=== PATIENT | female | born 1950 | race Two or more races ===

== ENCOUNTER 2017-12-30 22:41 | Emergency (ER) | payer OTHER ==
[~2017-12-30] VITALS: Ht 152.4 cm; Wt 42.6 kg
[~2017-12-30 22:41] MED LIST: ATEN50TA PO; BENA40TA2 PO; BP PILL; IBUP-1953 PO
[2017-12-30] MEDS ORDERED: ASPI81TA31 PO (23:08)
--- NOTE | 2017-12-30 23:10 | NUR ---
DR MARCIE PEREZ MD AT BEDSIDE FOR MSE.
[2017-12-30] MEDS ORDERED: HYDROCODONE/APAP 5-325MG TABLET PO ONE (23:15)
[2017-12-30] MEDS ORDERED: HYDROCODONE/APAP 5-325MG TABLET ONE (23:19)
--- NOTE | 2017-12-30 23:48 | NUR ---
RADIOLOGY AT PT BEDSIDE FOR XRAY.
--- NOTE | 2017-12-31 00:19 | NUR ---
Patient discharged to home in stable conditon. Written and verbal after care instructions given. Patient verbalizes understanding of instructions. Pt accompanied by daughter from ER. Sling training complete. No distress noted. Denies pain.
[2017-12-31 00:24] VITALS: BP 122/92
== END 2017-12-31 00:25 | disposition home or self-care (01) ==
LOC: ER 22:42
DX: M25.511 Pain in right shoulder (principal); M19.90 Unspecified osteoarthritis, unspecified site; I10 Essential (primary) hypertension; Z79.82 Long term (current) use of aspirin
CPT/HCPCS: 73030; A4663

== ENCOUNTER 2020-05-22 23:39 | Emergency (ER) | payer OTHER ==
[~2020-05-22] VITALS: Ht 149.9 cm; Wt 48.6 kg
[~2020-05-22 23:39] MED LIST changes: +ASPI81TA31 PO; -BENA40TA2 PO; +BENA40TA8 PO; -BP PILL
[2020-05-23] MEDS ORDERED: ONDANSETRON ODT 4 MG TAB.RAPDIS ONE (00:27)
[2020-05-23] MEDS ORDERED: HYDROCODONE/APAP 5-325MG TABLET ONE (00:27)
[2020-05-23] MEDS ORDERED: KETOROLAC TROMETHAMINE 15 MG INJ ONE (00:27)
[2020-05-23] MEDS ORDERED: CYCLOBENZAPRINE HCL 10 MG TABLET ONE (00:27)
[2020-05-23] MEDS ORDERED: ONDANSETRON ODT 4 MG TAB.RAPDIS SL ONE (00:30)
[2020-05-23] MEDS ORDERED: KETOROLAC TROMETHAMINE 15 MG INJ IM ONE (00:30)
[2020-05-23] MEDS ORDERED: CYCLOBENZAPRINE HCL 10 MG TABLET PO ONE (00:30)
[2020-05-23] MEDS ORDERED: HYDROCODONE/APAP 5-325MG TABLET PO ONE (00:30)
[2020-05-23 00:36] VITALS: BP 161/98
--- NOTE | 2020-05-23 00:36 | NUR ---
Patient discharged to home in stable condition. Written and verbal after care instructions given. Patient verbalizes understanding of instructions. Stressed follow up or return to ER for worsening s/s. Patient's son driving her home.
== END 2020-05-23 00:37 | disposition home or self-care (01) ==
LOC: ER 23:42
DX: G89.29 Other chronic pain (principal); M54.5 Low back pain; I10 Essential (primary) hypertension
CPT/HCPCS: 96372; 99284; J1885; Q0162

== ENCOUNTER 2023-02-17 11:06 | Emergency (ER) | payer OTHER ==
[~2023-02-17] VITALS: Ht 149.9 cm; Wt 46.3 kg
--- NOTE | 2023-02-17 11:20 | NUR ---
Dr. Parkinson at bedside, exam in progress. Pt's daugther at bedside.
[2023-02-17 11:23] VITALS: O2SAT 99
[2023-02-17] MEDS ORDERED: ONDANSETRON 4 MG/2 ML VIAL ONE (11:40)
[2023-02-17] MEDS ORDERED: MECLIZINE HCL 25 MG TABLET ONE (11:40)
[2023-02-17] MEDS: ONDANSETRON 4 MG/2 ML VIAL IV ONE ×2 (11:41→11:50)
[2023-02-17] MEDS: IV NORMAL SALINE 100 ML BAG IV ONE ×2 (11:41→11:49)
[2023-02-17] MEDS: MECLIZINE HCL 25 MG TABLET PO ONE ×2 (11:42→11:50)
[2023-02-17 12:05] LABS: HEMATOCRIT 25.9 % (31.2-41.9); MEAN CORPUSCULAR VOLUME 88.4 fL (75.5-95.3); PLATELET COUNT (AUTO) 249 K/uL (179-408)
[2023-02-17 12:16] LABS: ALANINE AMINOTRANSFERASE 21 U/L (14-59); ALKALINE PHOSPHATASE 72 U/L (50-136); ASPARTATE AMINOTRANSFERASE 29 U/L (15-37); BILIRUBIN,TOTAL 0.4 mg/dL (0.2-1.0); CARBON DIOXIDE 27 mmol/L (21-32); CHLORIDE 95 mmol/L (98-107); CREATININE 0.8 mg/dL (0.6-1.3); POTASSIUM 3.5 mmol/L (3.5-5.1); TOTAL PROTEIN, SERUM 6.9 g/dL (6.4-8.2); UREA NITROGEN, BLOOD 13 mg/dL (7-18)
--- NOTE | 2023-02-17 12:28 | NUR ---
at bedside updating pt. of test results and discussing care plan.
[2023-02-17] MEDS ORDERED: HYDR25TA4 PO (12:29)
--- NOTE | 2023-02-17 13:57 | NUR ---
HR of 78, 99% saturation on Room air. 118/74, Pt. AAOx4. calm cooperative.
[2023-02-17] MEDS ORDERED: MECL-159 PO (14:03)
--- NOTE | 2023-02-17 14:15 | NUR ---
Patient left room Ambulatory steady gait AAOx4. dcd instructions given pt. verbalized understanding.
--- NOTE | 2023-03-03 11:55 | NUR ---
Late note entry NS started on 02/17/2023 at 1145 and finished at 1245.
== END 2023-02-17 14:16 | disposition home or self-care (01) ==
LOC: ER 11:06
DX: R42 Dizziness and giddiness (principal); D64.9 Anemia, unspecified; E86.0 Dehydration; I10 Essential (primary) hypertension; Z79.82 Long term (current) use of aspirin; Z79.1 Long term (current) use of non-steroidal anti-inflammatories (NSAID); Z79.899 Other long term (current) drug therapy
CPT/HCPCS: 99285; 96374; 70450; 71045; 96361; 80053; 83880; 85025; 84484 ×2; 36415; 93005; J2405; J7040 ×2; A4663; J8597

== ENCOUNTER 2023-03-10 20:57 | Emergency (ER) | payer OTHER ==
[~2023-03-10] VITALS: Ht 149.9 cm; Wt 61.2 kg
[~2023-03-10 20:57] MED LIST changes: -BENA40TA8 PO; +HYDR25TA4 PO; +MECL-159 PO
[2023-03-10] MEDS ORDERED: CYCLOBENZAPRINE HCL 10 MG TABLET ONE (21:28)
[2023-03-10] MEDS ORDERED: KETOROLAC TROMETHAMINE 15 MG INJ ONE (21:28)
[2023-03-10] MEDS ORDERED: LIDOCAINE 5% PATCH TD ONE ×2 (21:28→21:30)
[2023-03-10] MEDS ORDERED: CYCLOBENZAPRINE HCL 10 MG TABLET PO ONE (21:30)
[2023-03-10] MEDS ORDERED: KETOROLAC TROMETHAMINE 15 MG INJ IM ONE (21:30)
--- NOTE | 2023-03-10 21:40 | NUR ---
Patient A/Ox4, ambulated with steady gait. She is accompanied by her relative at bedside. Here for c/o chronic lower back pain. According to the family, she was given a [place] 5 just prior to arrival for her pain but the pain did not resolve immediately. Explained to the patient and family that oral medications generally take a little longer to have any effect. She denies any acute trauma, or genitourinary symptoms.
[2023-03-10] MEDS ORDERED: CYCL5TAB PO (22:30)
[2023-03-10] MEDS ORDERED: HYDR-3972 PO (22:30)
--- NOTE | 2023-03-10 22:30 | NUR ---
Patient discharged to home in stable condition. Written and verbal after care instructions given. Patient verbalizes understanding of instructions. Stressed follow up or return to ER for worsening s/s. Patient A/Ox4, able to ambulate well with steady gait. Accompanied by relative at departure.
[2023-03-10 22:38] VITALS: BP 145/88; O2SAT 98
== END 2023-03-10 22:38 | disposition home or self-care (01) ==
LOC: ER 20:59
DX: G89.29 Other chronic pain (principal); M54.50 Low back pain, unspecified; I10 Essential (primary) hypertension; Z79.82 Long term (current) use of aspirin; Z79.1 Long term (current) use of non-steroidal anti-inflammatories (NSAID); Z79.899 Other long term (current) drug therapy
CPT/HCPCS: 99283; 96372; J1885; A4663

== ENCOUNTER 2023-03-15 21:56 | Emergency (ER) | payer OTHER ==
[~2023-03-15] VITALS: Ht 149.9 cm; Wt 61.2 kg
[~2023-03-15 21:56] MED LIST changes: +CYCL5TAB PO; +HYDR-3972 PO
[2023-03-15] MEDS ORDERED: SWABABLE VALVE TRANSFER SET EA MC ONE (22:42)
[2023-03-15] MEDS ORDERED: IV NORMAL SALINE 250 ML IV ONE (22:42)
[2023-03-15] MEDS ORDERED: IOHEXOL 300MG/ML 100 ML INFUS..BTL ONE (22:42)
[2023-03-15] MEDS ORDERED: ONDANSETRON 4 MG/2 ML VIAL IV ONE (22:45)
[2023-03-15] MEDS ORDERED: CYCLOBENZAPRINE HCL 10 MG TABLET PO ONE (22:45)
[2023-03-15] MEDS ORDERED: MORPHINE SULFATE 2 MG/1 ML DISP.SYRIN IV ONE (22:45)
[2023-03-15 22:47] LABS: *BILIRUBIN,URIN NEGATIVE (NEGATIVE); *BLOOD, URINE NEGATIVE (NEGATIVE); *COLOR,URINE YELLOW (YELLOW); *KETONES,URINE TRACE (NEGATIVE); *PROTEIN,URINE NEGATIVE (NEGATIVE); *UROBILINOGEN,URINE 0.2 E.U./dl (NORMAL); LEUKOCYTE ESTERASE ,URINE 2+ (NEGATIVE); NITRITE, URINE NEGATIVE (NEGATIVE); PH,URINE 8.5 (5.0-8.0); UGLUCOSE NEGATIVE (NEGATIVE)
[2023-03-15 23:00] LABS: BASOPHILS # (AUTO) 0.1 K/UL (0.0-0.2); BASOPHILS % (AUTO) 0.6 % (0.0-2.0); EOSINOPHILS # (AUTO) 0.1 K/uL (0.0-0.7); EOSINOPHILS % (AUTO) 1.5 % (0.0-7.0); HEMATOCRIT 28.8 % (31.2-41.9); HEMOGLOBIN 9.4 g/dL (10.9-14.3); LYMPHOCYTES # (AUTO) 1.9 K/uL (0.8-4.8); LYMPHOCYTES % (AUTO) 21.3 % (20.5-51.5); MEAN CORPUSCULAR HEMOGLOBIN 28.2 uug (24.7-32.8); MEAN CORPUSCULAR HGB CONC 33 g/dL (32.3-35.6); MEAN CORPUSCULAR VOLUME 86.3 fL (75.5-95.3); MONOCYTES # (AUTO) 0.7 K/uL (0.1-1.30); MONOCYTES % (AUTO) 8.4 % (0.0-11.0); NEUTROPHILS # (AUTO) 5.9 K/uL (1.8-8.9); NEUTROPHILS % (AUTO) 68.2 % (38.5-71.5); PLATELET COUNT (AUTO) 290 K/uL (179-408); RED BLOOD CELL COUNT(AUTO) 3.33 MIL/uL (3.63-4.92); RED CELL DISTRIBUTION WIDTH 14.5 % (12.3-17.7); WHITE BLOOD COUNT (AUTO) 8.7 K/uL (3.8-11.8)
[2023-03-15 23:06] LABS: *CLARITY,URINE HAZY (CLEAR)
[2023-03-15 23:11] LABS: BACTERIA,URINE MODERATE /HPF (NONE SEEN); SQUAMOUS EPITHELIAL CELL,UR FEW /HPF (NONE SEEN); WBC,URINE 20-50 /HPF (0-3)
[2023-03-15 23:13] LABS: CALCIUM 8.9 mg/dL (8.5-10.1); CARBON DIOXIDE 25 mmol/L (21-32); CHLORIDE 99 mmol/L (98-107); CREATININE 1.1 mg/dL (0.6-1.3); GLUCOSE 136 mg/dL (74-106); POTASSIUM 3.4 mmol/L (3.5-5.1); SODIUM SERUM 138 mmol/L (136-145); UREA NITROGEN, BLOOD 13 mg/dL (7-18)
[2023-03-15] MEDS ORDERED: ONDANSETRON 4 MG/2 ML VIAL ONE (23:18)
[2023-03-15] MEDS ORDERED: CYCLOBENZAPRINE HCL 10 MG TABLET ONE (23:18)
[2023-03-15 23:19] LABS: ALANINE AMINOTRANSFERASE 25 U/L (14-59); ALBUMIN 3.7 g/dL (3.4-5.0); ALKALINE PHOSPHATASE 104 U/L (50-136); ASPARTATE AMINOTRANSFERASE 23 U/L (15-37); BILIRUBIN,DIRECT 0.1 mg/dL (0.0-0.2); BILIRUBIN,TOTAL 0.3 mg/dL (0.2-1.0); LIPASE 229 U/L (73-393); TOTAL PROTEIN, SERUM 7.6 g/dL (6.4-8.2)
[2023-03-15] MEDS ORDERED: MORPHINE SULFATE 2 MG/1 ML DISP.SYRIN ONE (23:19)
[2023-03-15] MEDS ORDERED: CEFTRIAXONE 1 G in IV DEXTROSE 5% 50 ML IV ONE (23:30)
[2023-03-15] MEDS ORDERED: CEFTRIAXONE /D5W 50ML IVPB **ER PYXIS IV ONE (23:41)
[2023-03-16] MEDS ORDERED: KETOROLAC TROMETHAMINE 15 MG INJ IVP ONE
[2023-03-16] MEDS ORDERED: KETOROLAC TROMETHAMINE 15 MG INJ ONE (00:05)
[2023-03-16] MEDS ORDERED: CEFP200T14 PO (00:11)
[2023-03-16] MEDS ORDERED: CYCL5TAB PO (00:11)
[2023-03-16 01:26] VITALS: BP 138/87; O2SAT 100
== END 2023-03-16 00:55 | disposition home or self-care (01) ==
LOC: ER 21:56
DX: M54.50 Low back pain, unspecified (principal); G89.29 Other chronic pain; R10.32 Left lower quadrant pain; R11.2 Nausea with vomiting, unspecified; N39.0 Urinary tract infection, site not specified; I10 Essential (primary) hypertension; Z79.82 Long term (current) use of aspirin; Z79.4 Long term (current) use of insulin; Z79.899 Other long term (current) drug therapy
CPT/HCPCS: 99285; 74177; 96365; 96375 ×2; 80076; 80048; 81001; 83690; 85025; 36415; J0696; J2405; Q9967; J2270; J1885; A4663